=== PATIENT | female | born 1995 | race Caucasian/White ===

== ENCOUNTER 2016-07-13 00:48 | Emergency (ER) | payer OTHER ==
[2016-07-13 00:58] VITALS: RESP 16; TEMP 98.2
[2016-07-13] MEDS ORDERED: ONDANSETRON 4 MG/2 ML VIAL ONE (01:03)
[2016-07-13] MEDS ORDERED: ONDANSETRON 4 MG/2 ML VIAL IVP ONE (01:15)
--- NOTE | 2016-07-13 01:23 | EDPHY ---
H & P Stated Complaint: HEAVY ETOH AND VOMITING - Personal History Current Tetanus/Diphtheria Vaccine: Yes Current Tetanus Diphtheria and Acellular Pertussis (TDAP): Yes - Medical/Surgical History Hx Asthma: No Hx Chronic Respiratory Disease: No Hx Diabetes: No Hx Cardiac Disease: No Hx Renal Disease: No Hx Cirrhosis: No Hx Alcoholism: No Hx HIV/AIDS: No Hx Splenectomy or Spleen Trauma: No Other PMH: DENIES - Social History Smoking Status: Never smoked HPI/ROS: Chief complaint: Alcohol intoxication History of present illness: This is a 20-year-old female brought to the emergency department by EMS after being found intoxicated. Patient does admit to drinking alcohol. She reports being nauseated and has been vomiting. On my evaluation she does appear intoxicated. She is not able to hold a full conversation with me, she states she has been drinking, feels nauseous but otherwise feels fine. Review of systems: Unable to obtain secondary to level of intoxication (Garcia Feldman) - Physical Exam Exam: General Appearance: Alert, heavy odor of alcohol on breath ENT: No hemotympanum, no perdomo sign, no raccoon eyes Eyes: PERRLA Respiratory: Lungs clear to auscultation bilaterally Cardiac: Regular rate and rhythm. Gastrointestinal: Bowel sounds normal. Abdomen soft, nondistended, nontender. Neurological: Patient is alert. Strength and sensation intact and symmetrical. Skin: Head-to-toe examination does not reveal lesions consistent with trauma. Musculoskeletal: No apparent tenderness on palpation of the head, no bony deformity. The spine is without apparent tenderness, no crepitus, bony deformity or step-off. Chest wall is intact palpation without crepitus or subcutaneous air. Patient moving all extremities well. (Garcia Feldman) Constitutional: Initial Vital Signs Temperature (C) 36.8 C 07/13/16 00:50 Heart Rate 89 07/13/16 00:50 Respiratory Rate 16 07/13/16 00:50 Blood Pressure 115/69 07/13/16 00:50 O2 Sat (%) 95 07/13/16 00:50 O2 Delivery Mode Room Air O2 (L/minute) 2 Allergies/Adverse Reactions: No Known Allergies Allergy (Unverified 07/13/16 00:57) Home Medications: Medication Instructions Recorded NK [No Known Home Meds] 07/13/16 Medical Decision Making ED Course/Re-evaluation: Patient seen under the supervision of my secondary supervising physician Dr. Marisela Lynch. Patient presents to the emergency department with EMS after being found intoxicated. She does have a heavy odor of alcohol on her breath and does admit to drinking alcohol. She is nontoxic and her vital signs are stable. She has a benign physical exam. She has labs sober up and is well- appearing, she has no complaints. She will be discharged with a sober ride. ( Garcia Feldman) Differential Diagnosis: Included but not limited to alcohol intoxication, alcohol withdrawal, polysubstance abuse (Garcia Feldman) Other Provider: PHYSICIAN DOCUMENTATION: The patient was evaluated and managed by the Physician Appliance Repairer. My co- signature indicates that I have reviewed this chart and I agree with the findings and plan of care as documented. I am the secondary supervising physician. (Marisela Lynch) - Data Points Medications Given: Discontinued Medications Ondansetron HCl (Zofran) 4 mg IVP EDNOW ONE Stop: 07/13/16 01:16 Last Admin: 07/13/16 01:15 Dose: 4 mg Departure - Departure Disposition: Home, Routine, Self-Care Clinical Impression: Alcoholic intoxication Qualifiers: Complication of substance-induced condition: uncomplicated Qualified Code(s): F10.120 - Alcohol abuse with intoxication, uncomplicated Condition: Good Instructions: Alcohol Intoxication (ED) Additional Instructions: Follow-up with a primary care doctor next week for recheck Drink plenty of fluids to stay hydrated Stop drinking alcohol If symptoms worsen or new symptoms develop return to the emergency department for recheck Referrals: Patient,NotPresent [Unknown] - As per Instructions Arias Gonzalez MD [Medical Doctor] - As per Instructions
[2016-07-13 03:25] VITALS: BP 117/60; PULSE 102; O2SAT 97
== END 2016-07-13 03:59 | disposition home or self-care (01) ==
DX: F10.120 Alcohol abuse with intoxication, uncomplicated (principal)
CPT/HCPCS: 96374; J2405